=== PATIENT | male | born 2000 | race Caucasian/White ===

== ENCOUNTER 2021-03-22 12:17 | Outpatient (CLI) | payer SELFPAY ==
[2021-03-22 13:40] LABS: #Monocytes 0.4 10x3/uL (0.0-1.1); #Neutrophils 5.4 10x3/uL (1.5-8.4); %Basophils 0.5 % (0.0-2.0); %Eosinophils 0.3 % (0.0-6.0); %Lymphocytes 19.5 % (18.0-47.0); %Monocytes 5.9 % (0.0-10.0); %Neutrophils 72.7 % (40.0-75.0); Hemoglobin 17.5 g/dL (13.5-17.5); Mean Corpuscular HGB CONC 34.3 g/dL (32.0-36.0); Mean Corpuscular Hemoglobin 30.8 pg (27.0-33.0); Mean Corpuscular Volume 89.8 fl (81.2-95.1); Mean Platelet Volume 9.6 fl (7.4-10.4); Platelet Count 302 10x3/uL (150-450); RBC Distribution Width 12.1 % (11.5-14.5); Red Blood Cell (RBC) Count 5.68 10x6/uL (4.32-5.72); White Blood Cell (WBC) Count 7.4 10x3/uL (3.5-10.5)
[2021-03-22 13:45] LABS: Anion Gap 15 mmol/L (10-20); BUN (Urea Nitrogen) 12 mg/dL (8.9-20.6); Calc. Creatinine Clearance 0 mL/min (70-130); Calcium 10.7 mg/dL (7.8-10.44); Carbon Dioxide 28 mmol/L (22-29); Chloride 103 mmol/L (98-107); Glucose 88 mg/dL (70-105); Potassium 4.1 mmol/L (3.5-5.1); Sodium 142 mmol/L (136-145)
[2021-03-22 19:55] LABS: SARS-CoV-2 PCR by NAA Not Detected (NotDetected)
== END 2021-03-22 12:18 | disposition home or self-care (01) ==
LOC: LABBT 12:17
DX: Z01.812 Encounter for preprocedural laboratory examination (principal); Z20.822 Contact with and (suspected) exposure to COVID-19
CPT/HCPCS: 80048; 85025; U0003; U0005

== ENCOUNTER 2021-03-24 09:20 | Day surgery (SDC) | payer OTHER ==
[2021-03-24] MEDS ORDERED: ceFAZolin 2 GM/DEX 5% 100 ML BAG ONE (09:40)
[2021-03-24] MEDS ORDERED: Lidocaine 1% w/Epinephrine 1:100K 20 ML VIAL ONE (10:08)
[2021-03-24] MEDS ORDERED: Bupivacaine 0.25% HCL 30 ML VIAL ONE (10:08)
[2021-03-24] MEDS ORDERED: Fentanyl 100 MCG/2 ML VIAL ONE (10:09)
[2021-03-24] MEDS ORDERED: Midazolam HCl 2 mg/2 ml Vial ONE (10:09)
[2021-03-24] MEDS ORDERED: SUGAMMADEX SODIUM 200 MG/2 ML VIAL ONE (10:10)
[2021-03-24] MEDS ORDERED: HYDROmorphone 2 MG/ML VIAL ONE (10:10)
[2021-03-24] MEDS ORDERED: Ketamine 50 MG/ML (10ML VIAL) ONE (10:21)
[2021-03-24] MEDS ORDERED: Scopolamine 1.5 mg/72 hour Patch ONE (10:37)
[2021-03-24] MEDS ORDERED: Ondansetron PF 4 MG/2 ML Vial ONE ×3 (10:42→11:27)
[2021-03-24] MEDS ORDERED: Dexmedetomidine 200 MCG/2 ML VIAL ONE (10:42)
[2021-03-24] MEDS ORDERED: Lidocaine 1% PF 5 ML VIAL ONE (11:27)
[2021-03-24] MEDS ORDERED: PROPOFOL 200 MG/20 ML VIAL ONE (11:27)
[2021-03-24] MEDS ORDERED: Dexamethasone 20 MG/5 ML VIAL ONE (11:27)
[2021-03-24] MEDS ORDERED: Glycopyrrolate 0.2 MG/ML 5 ML SYRINGE ONE (11:27)
[2021-03-24] MEDS ORDERED: Rocuronium Bromide 10 MG/ML (10ML VIAL) ONE (11:27)
[2021-03-24] MEDS ORDERED: Ketorolac Tromethamine 30 MG/ML VIAL ONE (11:27)
[2021-03-24] MEDS ORDERED: Metoclopramide HCl 10 MG/2 ML VIAL ONE (11:27)
== END 2021-03-24 14:25 | disposition home or self-care (01) ==
LOC: SDC 09:20
PROVIDERS: ATTEND Surgery
PROC: 0YU54JZ Supplement Right Inguinal Region with Synthetic Substitute, Percutaneous Endoscopic Approach (ICD-10-PCS; principal; 2021-03-24)
CPT/HCPCS: C1781; J1100; J1170; J1885; J2250; J2405; J2704; J2765; J3010; S0020